=== PATIENT | female | born 1960 | race Two or more races ===

== ENCOUNTER 2016-11-09 14:40 | Emergency (ER) | payer SELFPAY ==
[2016-11-09 16:23] LABS: BASOPHIL % 0.4 % (0-2); PLATELET COUNT 242 x10^3mcL (130-400)
[2016-11-09 16:25] LABS: RED CELL DISTRIBUTION WIDTH 16.5 % (11.5-14.5)
[2016-11-09 16:29] LABS: CALCIUM 8.9 mg/dL (8.5-10.1); CARBON DIOXIDE 26.8 mmol/L (21-32); CREATININE SERUM 1.1 mg/dL (0.6-1.0); POTASSIUM SERUM 4.2 mmol/L (3.5-5.1)
[2016-11-09 17:25] VITALS: BP 144/66
== END 2016-11-09 19:17 | disposition home or self-care (01) ==
LOC: ED 14:40 → EDBD 14:40 → ED 19:17
PROVIDERS: Specialist
DX: S83.91XA Sprain of unspecified site of right knee, initial encounter (principal); E11.9 Type 2 diabetes mellitus without complications; I10 Essential (primary) hypertension; M54.41 Lumbago with sciatica, right side; V00.811A Fall from moving wheelchair (powered), initial encounter; Y93.89 Activity, other specified; Y99.8 Other external cause status; Y92.89 Other specified places as the place of occurrence of the external cause
CPT/HCPCS: J1170; J1885; J2405